=== PATIENT | female | born 1995 | race Caucasian/White ===

== ENCOUNTER 2018-01-07 06:36 | Emergency (ER) | payer SELFPAY ==
[2018-01-07 06:37] VITALS: BP 146/92; PULSE 89; RESP 16; TEMP 36.8; O2SAT 100; BMI 26.7
--- NOTE | 2018-01-07 07:30 | ED.DCSUM_ITS ---
- ER Visit Summary Date of Service: 01/07/18 Chief Complaint: Dental pain History of Present Illness: The patient is a 22 F with right-sided dental pain for the last 2 weeks. She states at this time she is unable to tell if it is upper or lower teeth. She states she did break a tooth off on the right side approximately a year ago, but nothing became painful until 2 weeks ago. She does have an appointment with a dentist in [place] in 2 weeks. Physical Examination: Vital signs are unremarkable. Head neck examination was no facial edema or erythema. TMs are clear bilaterally. Intraoral examination reveals the right maxillary third molar to be broken and tender to palpation. There is very minimal surrounding gum edema. She has mild tenderness of the right mandibular second molar as well. There is no trismus. Uvula is midline. She is tolerating secretions well and has a strong voice. Neck is supple with no lymphadenopathy. Heart is regular rate and rhythm. Lung sounds are clear. Abdomen is soft nontender. Test Results: [] Emergency Department Course and Treatment: Patient is treated with Naprosyn and Pen-Vee K, first doses given here. She is given a dental referral list for the clinics in the area to see if she can be seen sooner. Treatment Plan: [] Disposition: Discharge Impression: Odontalgia This note was generated with [employer] dictation software. It may contain incorrect words, spelling, and punctuation that were not noted in review of the chart prior to signing ED Disposition - Plan for ED Patient: Disposition: Home or Assisted Living Chief Complaint: Dental Instructions: ED Tooth Pain Prescriptions: Naproxen [Naprosyn] 500 mg PO BID PRN #20 tablet Penicillin V Potassium 500 mg PO 4X/DAY #40 tablet Additional Instructions: Dental list provided
[2018-01-07] MEDS: Naproxen 500 MG Tablet PO (07:56)
[2018-01-07] MEDS: Penicillin Vk 250 MG Tablet 500 MG PO (07:56)
== END 2018-01-07 08:01 | disposition home or self-care (01) ==
PROVIDERS: Emergency Provider Emergency Medicine
DX: K08.89 Other specified disorders of teeth and supporting structures (principal); Z72.0 Tobacco use
CPT/HCPCS: 99283

== ENCOUNTER 2024-12-18 09:59 | Emergency (ER) | payer MEDICAID, SELFPAY ==
[2024-12-18 09:59] VITALS: BP 153/109; PULSE 119; RESP 18; TEMP 36.3; O2SAT 99; BMI 28.7
[2024-12-18 10:01] VITALS: BP 153/109; PULSE 114; RESP 16; TEMP 36.3; O2SAT 98
--- NOTE | 2024-12-18 10:10 | ED.VIS.DYS ---
HPI History of Present Illness Chief Complaint: Shortness of Breath Narrative Narrative: 29-year-old female presents with upper respiratory infection type symptoms and nausea and vomiting that she has had for the last day. She relates history that her son was diagnosed with influenza A about a week ago. She has been around him and had to take him to the doctor, stating that he required antibiotics afterwards. Yesterday, she started feeling badly with myalgias and headache. Today, she awoke with fever as high as 102 ?F, along with nausea and vomiting. She is currently dry heaving. She states that she is having difficulty breathing and feels heaviness in her chest when she tries to breathe with some burning sensation. She has a cough that is rarely productive. [facility] Medical History Fever Home Medications ?Medication ?Instructions ?Recorded ?Last Taken ?Type naproxen 500 mg tablet 500 mg PO BID PRN #20 tabs 01/07/18 Unknown Rx penicillin V potassium 500 mg 500 mg PO 4X/DAY #40 tabs 01/07/18 Unknown Rx tablet ondansetron 4 mg disintegrating 4 mg PO Q8H PRN PRN Nausea #10 tabs 12/18/24 Unknown Rx tablet oseltamivir 75 mg capsule (Tamiflu) 75 mg PO BID 5 days #10 caps 12/18/24 Unknown Rx Allergy/AdvReac Type Severity Reaction Status Date / Time No Known Allergies Allergy Verified 01/07/18 06:40 Social History Smoking Status: Unknown if ever smoked ROS ROS ED ROS Narrative Review of systems positive for fever, nausea and vomiting that is turned to dry heaving. Positive cough with shortness of breath/difficulty breathing. Positive myalgias. Positive headaches. EXAM Physical Exam Narrative Exam Narrative: Afebrile. Vital signs noted. Nontoxic-appearing. Cardiovascular examination reveals mild tachycardia. Lungs are clear to auscultation bilaterally without wheezing, moving a good amount of air. No noted consolidation on auscultation. Abdomen soft and nontender without guarding or rebound. Positive bowel sounds. Neurological examination nonfocal and nonlateralizing. Has bottle of water on cot which she has been sipping. Const Vital Signs: 12/18/24 09:59 12/18/24 10:01 12/18/24 10:32 Temperature 97.4 F L 97.4 F L 98.4 F Temperature Source Temporal Temporal Oral Pulse Rate 119 H 114 H 97 Respiratory Rate 18 16 18 Respiratory Effort Respiratory Depth Respiratory Pattern Blood Pressure 153/109 H 153/109 H 128/79 H Blood Pressure Mean 123 123 95 Pulse Ox 99 98 96 Oxygen Delivery Method Room Air Room Air Room Air 12/18/24 10:33 Temperature Temperature Source Pulse Rate Respiratory Rate Respiratory Effort Normal Non-Labored Respiratory Depth Normal Respiratory Pattern Normal Blood Pressure Blood Pressure Mean Pulse Ox Oxygen Delivery Method MDM MDM MDM Narrative Medical decision making narrative: Differential diagnosis does include influenza type A which is suspected over other viral etiology such as COVID or V. In order to confirm influenza A or B, I do feel that swab is indicated to direct antiviral therapy. Her pulse ox is 98 to 99% on room air so I doubt based on her physical examination that she has pneumonia that would require antibiotics. She could continue oral fluids as she seems to be tolerating them currently. Chest x-ray and 2 views will be obtained to rule out pneumonia or pneumothorax. On my independent interpretation of her chest x-ray in 2 views, there is no consolidation, no pneumonia, no pneumothorax. I do not feel antibiotics are indicated. Respiratory swab is positive for influenza A. She was given a Zofran ODT here and her first dose of Tamiflu. She was also given albuterol MDI for her shortness of breath that she can use 1 to 2 puffs inhaled every 4-6 hours as needed. At this point in time, I do not feel she requires admission or observation as she has a pulse ox ranging from 96 to 99% on room air. She was written prescriptions for the Tamiflu and Zofran and told to drink plenty of oral fluids. She is already tolerating oral fluids here. Return instructions to the emergency department were reviewed. Disposition is discharged home in stable condition. History & Record Review Discussion w/independent historian: Patient Radiography Chest X-Ray - ED: 2 View, Read by ED Physician, Read by Radiologist and Normal Diagnostic Testing: Clinical Impression(s) from Imaging Studies Chest X-Ray 12/18/24 10:20 IMPRESSION: No acute abnormality is seen. Reading Location: [facility] Discharge Plan Triage Chief Complaint: Shortness of Breath ED Provider: Noe Santana Dx/Rx/DC Orders Clinical Impression: Influenza A, Nausea and vomiting, Shortness of breath Instructions: ED Dyspnea, ED Influenza (Adult), ED Vomiting (Adult) Prescriptions: New oseltamivir [Tamiflu] 75 mg capsule 75 mg PO BID 5 Days Qty: 10 0RF ondansetron 4 mg tablet,disintegrating 4 mg PO Q8H PRN PRN (Reason: Nausea) Qty: 10 0RF No Action penicillin V potassium 500 MG tablet 500 mg PO 4X/DAY Qty: 40 0RF naproxen 500 MG tablet 500 mg PO BID PRN Qty: 20 0RF Primary Care Provider: Care Physician,No Primary Referrals: David Winkler MD [Med Staff - Active Staff] - 1 Week if not improving Care Physician,No Primary [Primary Care Provider] - Activity Restrictions/Additional Instructions: Medication as directed. Drink plenty of oral fluids. Rest. Follow-up with a primary care provider in the next week if not improving. Return with increased shortness of breath, new or worsening symptoms. Print Language: Guatemalan Disposition Disposition: Home, Self Care
--- NOTE | 2024-12-18 10:20 | RAD_ITS ---
PROCEDURE: CHEST PA AND LATERAL REASON FOR EXAM: SHORTNESS OF BREATH TECHNIQUE: Frontal and lateral views of the chest. COMPARISON: None. FINDINGS: The heart is nonenlarged. The lungs are clear. The bones are unremarkable. RAD/Chest PA and Lateral IMPRESSION: No acute abnormality is seen. Reading Location: [place] [id number]
[2024-12-18 10:32] VITALS: BP 128/79; PULSE 97; RESP 18; TEMP 36.9; O2SAT 96
[2024-12-18] MEDS: Albuterol Sulfate 8 gm Inhaler (60 puffs) 2 PUFF INHALATION (11:35)
[2024-12-18] MEDS: Oseltamivir Phosphate 75 MG Capsule PO (11:36)
[2024-12-18] MEDS: Ondansetron ODT 4 MG Tablet PO (11:36)
--- NOTE | 2024-12-18 12:23 | CM.ED ---
Social work Reason for referral: no PCP Referral source: case find This SW identified patient's lack of PCP and need for resources. SW entered patient's room, introducing self and role at [facility]. Patient accepted SW visit and confirmed ability to talk with patient's significant other, Chava, who was bedside. Patient confirmed lack of PCP and accepted resources of [facility] Provider Directory and [facility] information. Patient denied further needs at this time. Cailin Madrigal, PATIENT ACCESS COORDINATOR, LINE CLOSER
== END 2024-12-18 11:41 | disposition home or self-care (01) ==
PROVIDERS: Emergency Provider Emergency Medicine; Visit Provider Emergency Medicine
DX: J10.1 Influenza due to other identified influenza virus with other respiratory manifestations (principal); R11.2 Nausea with vomiting, unspecified; R06.02 Shortness of breath
CPT/HCPCS: 71046; 87631; 99283